=== PATIENT | male | born 1995 | race American Indian/Alaskan Native ===

== ENCOUNTER 2017-02-21 20:03 | Emergency (ER) | payer SELFPAY ==
--- NOTE | 2017-02-21 21:32 | EDM.PDOC ---
ED HPI GENERAL MEDICAL PROBLEM - General Chief Complaint: ENT Problem Stated Complaint: JAW PAIN Time Seen by Provider: 02/21/17 21:26 Source of Information: Reports: Patient History Limitations: Reports: No Limitations - History of Present Illness INITIAL COMMENTS - FREE TEXT/NARRATIVE: C/O bilateral wisdom teeth pain to upper and lower for past week. Trying Excedrin but not helping, last took at 1 pm today. No fever or chills. States he was told by work to be seen. - Related Data Allergies Allergy/AdvReac Type Severity Reaction Status Date / Time No Known Allergies Allergy Verified 02/21/17 20:09 Home Meds: Home Meds . [No Known Home Meds] 05/30/14 [History] Past Medical History - Past Health History Medical/Surgical History: Denies Medical/Surgical History Social & Family History - Tobacco Use Smoking Status *Q: Current Every Day Smoker Years of Tobacco use: 1 Packs/Tins Daily: 0.2 Second Hand Smoke Exposure: Yes - Alcohol Use Days Per Week of Alcohol Use: 0 - Recreational Drug Use Recreational Drug Use: No ED ROS ENT - Review of Systems Review Of Systems: ROS reveals no pertinent complaints other than HPI. ED EXAM, ENT - Physical Exam Exam: See Below Exam Limited By: No Limitations General Appearance: Alert, No Apparent Distress Eye Exam: Bilateral Eye: EOMI Ears: Normal External Exam, Normal TMs Nose: Normal Inspection Mouth/Throat: Dental Pain, Dental Tenderness, Other (partial eruption 4 wisdom teeth, mild decay lower left) Head: Atraumatic, Normocephalic Neck: Normal Inspection. No: Lymphadenopathy (L), Lymphadenopathy (R) Respiratory/Chest: No Respiratory Distress Cardiovascular: Normal Peripheral Pulses GI/Abdominal: Normal Bowel Sounds Neurological: Alert, Oriented, Normal Cognition Skin: Warm, Dry, Intact Course - Vital Signs Last Recorded V/S: Last Vital Signs Temp 98 F 02/21/17 20:06 Pulse 70 02/21/17 20:06 Resp 18 02/21/17 20:06 BP 120/54 L 02/21/17 20:06 Pulse Ox 99 02/21/17 20:06 Departure - Departure Time of Disposition: 21:28 Disposition: Home, Self-Care 01 Condition: Good Clinical Impression: Dental caries, Pain, dental - Discharge Information Instructions: Dental Abscess, [id number] Referrals: PCP,None [Primary Care Provider] - Forms: ED Department Discharge Additional Instructions: alternate tylenol 650mg with ibuprofen 600mg every 4 hours as needed for dental pain take ibuprofen with food do NOT take ibuprofen with excedrin Amoxicillin 500mg one three times daily for one week Make dental appointment anbesol as needed
== END 2017-02-21 21:36 | disposition home or self-care (01) ==
LOC: DL.ED 20:03
CPT/HCPCS: 99282; 99283

== ENCOUNTER 2017-12-27 17:17 | Emergency (ER) | payer SELFPAY ==
[2017-12-27 17:42] VITALS: BP 142/86
--- NOTE | 2017-12-27 17:58 | EDM.PDOC ---
ED HPI GENERAL MEDICAL PROBLEM - General Stated Complaint: POSSIBLE YEAST INFECTION, [id number] Time Seen by Provider: 12/27/17 17:45 Source of Information: Reports: Patient History Limitations: Reports: No Limitations - History of Present Illness INITIAL COMMENTS - FREE TEXT/NARRATIVE: This 22 yo male patient reports to the ED with drainage from his penis. The patient reports he has had to change is underpants 4 times today due to the drainage. The patient reports only 1 sexual partner (present during the examination). The patient's partner was encouraged to get a follow-up appointment to be treated for STD's also. Duration: Day(s): (4), Constant Location: Reports: Other Quality: Reports: Burning (with urination) Severity: Moderate Improves with: Reports: None Worsens with: Reports: None Associated Symptoms: Reports: No Other Symptoms - Related Data Allergies Allergy/AdvReac Type Severity Reaction Status Date / Time No Known Allergies Allergy Verified 12/27/17 17:35 Home Meds: Home Meds . [No Known Home Meds] 05/30/14 [History] Past Medical History - Past Health History Medical/Surgical History: Denies Medical/Surgical History Social & Family History - Family History Family Medical History: Noncontributory - Tobacco Use Smoking Status *Q: Current Every Day Smoker Years of Tobacco use: 5 Packs/Tins Daily: 0.5 - Caffeine Use Caffeine Use: Reports: Energy Drinks, Soda - Recreational Drug Use Recreational Drug Use: No ED ROS GENERAL - Review of Systems Review Of Systems: ROS reveals no pertinent complaints other than HPI. ED EXAM, RENAL/ - Physical Exam Exam: See Below Exam Limited By: No Limitations General Appearance: Alert, WD/WN, Mild Distress Eye Exam: Bilateral Eye: EOMI, Normal Inspection, PERRL Ears: Normal External Exam, Normal Canal, Hearing Grossly Normal, Normal TMs Nose: Normal Inspection, Normal Mucosa, No Blood Throat/Mouth: Normal Inspection, Normal Lips, Normal Teeth, Normal Gums, Normal Oropharynx, Normal Voice, No Airway Compromise Head: Atraumatic, Normocephalic Neck: Normal Inspection, Supple, Non-Tender, Full Range of Motion Respiratory/Chest: No Respiratory Distress, Lungs Clear, Normal Breath Sounds, No Accessory Muscle Use, Chest Non-Tender Cardiovascular: Normal Peripheral Pulses, Regular Rate, Rhythm, No Edema, No Gallop, No JVD, No Murmur, No Rub GI/Abdominal: Normal Bowel Sounds, Soft, Non-Tender, No Organomegaly, No Distention, No Abnormal Bruit, No Mass (Male) Exam: Urethral Discharge, Other (erythema around urethra) Rectal (Males) Exam: Deferred Back Exam: Normal Inspection, Full Range of Motion, NT Extremities: Normal Inspection, Normal Range of Motion, Non-Tender, Normal Capillary Refill, No Pedal Edema Neurological: Alert, Oriented, CN II-XII Intact, Normal Cognition, Normal Gait, Normal Reflexes, No Motor/Sensory Deficits Psychiatric: Normal Affect, Normal Mood Skin Exam: Warm, Dry, Intact, Normal Color, No Rash Lymphatic: No Adenopathy Course - Vital Signs Last Recorded V/S: Last Vital Signs Temp 37.0 C 12/27/17 17:41 Pulse 65 12/27/17 17:41 Resp 16 12/27/17 17:41 BP 142/86 H 12/27/17 17:41 Pulse Ox 98 12/27/17 17:41 - Orders/Labs/Meds Orders: Active Orders 24 hr Category Date Time Status CHLAMYDIA/GC NUCLEIC ACID AMP [MREF] Stat Lab 12/27/17 17:31 Ordered UA W/MICROSCOPIC [URIN] Stat Lab 12/27/17 17:31 Ordered Departure - Departure Time of Disposition: 18:44 Disposition: Home, Self-Care 01 Condition: Fair Clinical Impression: Urethral discharge in male - Discharge Information Instructions: Sexually Transmitted Disease, [id number], Gonorrhea Testing Forms: ED Department Discharge Care Plan Goals: The patient was advised of the examination and lab results during the visit. The patient was given an injection of Rocephin and an oral dose of Azithromycin while in the ED. The patient was advised that a urine sample would be sent to the lab to check for sexually transmitted diseases. The patient will be notified of the results. If the patient has any additional symptoms or concerns , the patient should follow-up with his primary care facility or return to the emergency department. - My Orders Last 24 Hours: My Active Orders 12/27/17 17:31 CHLAMYDIA/GC NUCLEIC ACID AMP [MREF] Stat UA W/MICROSCOPIC [URIN] Stat - Assessment/Plan Last 24 Hours: My Active Orders 12/27/17 17:31 CHLAMYDIA/GC NUCLEIC ACID AMP [MREF] Stat UA W/MICROSCOPIC [URIN] Stat
[2017-12-27] MEDS: Azithromycin 250 MG Tab PO ONE (18:28)
[2017-12-27] MEDS: cefTRIAXone 250 MG Vial IM ONE (18:31)
== END 2017-12-27 19:00 | disposition home or self-care (01) ==
LOC: DL.ED 17:17
DX: R36.9 Urethral discharge, unspecified (principal); F17.210 Nicotine dependence, cigarettes, uncomplicated
CPT/HCPCS: 81001; 87086; 87491; 87591; 99283; A9270; J0696; 96372